=== PATIENT | female | born 1985 | race African-American/Black ===

== ENCOUNTER 2017-07-22 12:30 | Emergency (ER) | payer MEDICAID ==
[~2017-07-22] VITALS: Ht 167.6 cm; Wt 68.3 kg
[2017-07-22] MEDS ORDERED: IPRATROPIUM BROMIDE (0.02%) 0.5MG/2.5ML NEB HHN STA (12:44)
[2017-07-22] MEDS ORDERED: PREDNISONE 20MG TABLET PO STA (12:44)
[2017-07-22] MEDS ORDERED: ALBUTEROL (0.083%) 2.5MG/3ML NEB HHN STA (12:44)
[2017-07-22] MEDS ORDERED: CLONIDINE 0.1MG TABLET PO ONE (13:45)
[2017-07-22 14:33] LABS: HEMATOCRIT. 43.2 % (36.0-48.0); HEMOGLOBIN. 14.4 g/dL (12.0-16.0); MEAN CORPUSCULAR HEMOGLOBIN 29.8 pg (28.0-32.0); MEAN CORPUSCULAR VOLUME 89.6 fL (81.0-99.0); MEAN PLATELET VOLUME 7.3 fl (7.4-10.4); PLATELET 323 x1000/uL (130-400); RED BLOOD CELL COUNT 4.82 mill/uL (4.2-5.4); RED CELL DISTRIBUTION WIDTH 14.1 % (11.6-14.6)
[2017-07-22 14:40] LABS: CHLORIDE 107 mEq/L (98-107)
[2017-07-22 15:12] LABS: PLATELET ESTIMATE NORMAL
[2017-07-22] MEDS ORDERED: ALBUTEROL (0.083%) 2.5MG/3ML NEB HHN ONE (15:45)
[2017-07-22 16:26] VITALS: BP 154/90
== END 2017-07-22 18:00 | disposition home or self-care (01) ==
LOC: ER 12:30
DX: J45.901 Unspecified asthma with (acute) exacerbation (principal); I16.0 Hypertensive urgency; I10 Essential (primary) hypertension
CPT/HCPCS: 36415; 71045; 80053; 81025; 84484; 85025; 93005; 94640; 99285; J7512; J7611

== ENCOUNTER 2018-04-30 01:52 | Inpatient (IN) | payer BC, MEDICAID ==
[2018-04-30] VITALS (9 sets, daily range): BP systolic 146–172; BP diastolic 90–111
[~2018-04-30] VITALS: Ht 165.1 cm; Wt 69.9 kg
[2018-04-30] MEDS ORDERED: ALBUTEROL (0.083%) 2.5MG/3ML NEB HHN STA (03:54)
[2018-04-30] MEDS ORDERED: METHYLPREDNISOLONE SOD SUCC 125 MG/2 ML VIAL IV STA (03:54)
[2018-04-30] MEDS ORDERED: IPRATROPIUM BROMIDE (0.02%) 0.5MG/2.5ML NEB HHN STA (03:54)
[2018-04-30] MEDS ORDERED: MAGNESIUM 2 G PREMIX 50 ML IV STA (03:54)
[2018-04-30] MEDS ORDERED: KETOROLAC 30MG/ML VIAL IV ONE (04:15)
[2018-04-30] MEDS ORDERED: IPRATROPIUM/ALBUTEROL 0.5-3(2.5)MG/3ML NEB ONE (04:15)
[2018-04-30] MEDS ORDERED: ALBUTEROL (0.5%) 2.5MG/0.5ML NEB HHN ONE (04:16)
[2018-04-30 04:20] LABS: CHLORIDE 109 mEq/L (98-107)
[2018-04-30 04:25] LABS: HEMATOCRIT 42.3 % (36.0-48.0); HEMOGLOBIN 14.1 g/dL (12.0-16.0); MEAN CORPUSCULAR HEMOGLOBIN 31.6 pg (28.0-32.0); MEAN CORPUSCULAR VOLUME 94.6 fL (81.0-99.0); PLATELET 358 x1000/uL (130-400); RED BLOOD CELL COUNT 4.47 mill/uL (4.2-5.4); RED CELL DISTRIBUTION WIDTH 13.8 % (11.6-14.6)
[2018-04-30] MEDS: IPRATROPIUM/ALBUTEROL 0.5-3(2.5)MG/3ML NEB HHN SCH ×4 (10:51→19:59)
[2018-04-30] MEDS ORDERED: IRBE300T18 PO (11:58)
[2018-04-30] MEDS ORDERED: ALBUTEROL (11:58)
[2018-04-30] MEDS ORDERED: MONT10TA24 PO (11:58)
[2018-04-30] MEDS ORDERED: NIFE60TA64 PO (11:58)
[2018-04-30] MEDS ORDERED: ONDANSETRON 4MG ODT PO PRN (14:00)
[2018-04-30] MEDS ORDERED: DOCUSATE SODIUM 100MG CAPSULE PO PRN (14:00)
[2018-04-30] MEDS ORDERED: DIPHENHYDRAMINE 50MG/ML VIAL IV PRN (14:00)
[2018-04-30] MEDS ORDERED: MAGNESIUM HYDROXIDE 400MG/5ML 30ML UDC PO PRN (14:00)
[2018-04-30 14:23] LABS: BG BASE EXCESS -0.8 mmol/L (-2.0-2.0); BG CARBOXYHEMOGLOBIN 0.5 % (0.5-1.5); BG DEOXYHEMOGLOBIN 5.8 % (0.0-5.0); BG HCO3 ACT 23.5 mmol/L (22.0-26.0); BG METHEMOGLOBIN 0.1 % (0.0-1.5); BG OXYGEN SATURATION 94.2 % (92.0-98.5); BG OXYHEMOGLOBIN 93.6 % (94.0-97.0); BG PH 7.409 (7.350-7.450); BG PO2 69.4 mmHg (75.0-100.0); BG SAMPLE SITE RIGHT RADIAL; BG TOTAL HEMOGLOBIN 14.2 g/dL (12.0-18.0); BG VENT MODE ROOM AIR
[2018-04-30] MEDS: LORATADINE 10MG TABLET PO SCH (14:37)
[2018-04-30] MEDS: METHYLPREDNISOLONE SOD SUCC 40 MG/ML VIAL IV SCH ×2 (14:37→20:53)
[2018-04-30] MEDS: FAMOTIDINE 20MG/2ML VIAL IV SCH ×2 (14:37→20:48)
[2018-04-30] MEDS: ENOXAPARIN 40MG/0.4ML SYR SUBCUT SCH (14:38)
[2018-04-30] MEDS: HYDROCODONE/ACETAMINOPHEN 5/325MG TABLET PO PRN (14:46)
[2018-04-30] MEDS: LEVOFLOXACIN 500MG PREMIX 100 ML IV SCH (15:36)
[2018-04-30 16:58] LABS: CLARITY URINE CLEAR (CLEAR); COLOR URINE YELLOW (YELLOW); KETONES URINE NEGATIVE (NEGATIVE); LEUKOCYTE ESTERASE URINE NEGATIVE (NEGATIVE); NITRITE URINE NEGATIVE (NEGATIVE); OCCULT BLOOD URINE NEGATIVE (NEGATIVE); PROTEIN URINE NEGATIVE (NEGATIVE); SPECIFIC GRAVITY URINE 1.004 (1.005-1.030); UROBILINOGEN URINE 0.2 E.U./dL (0.2-1.0)
[2018-04-30 17:12] LABS: *COCAINE SCREEN URINE NEGATIVE (NEGATIVE); METHADONE URINE SCREEN NEGATIVE (NEGATIVE); OPIATES URINE SCREEN NEGATIVE (NEGATIVE)
[2018-04-30] MEDS: HYDRALAZINE 20MG/ML VIAL IV PRN (17:13)
[2018-04-30 17:14] LABS: *AMPHETAMINES SCREEN URINE NEGATIVE (NEGATIVE); *BARBITURATES SCREEN URINE NEGATIVE (NEGATIVE); *BENZODIAZEPINES SCREEN URINE NEGATIVE (NEGATIVE); CANNABINOID URINE SCREEN NEGATIVE (NEGATIVE); PHENCYCLIDINE URINE SCREEN NEGATIVE (NEGATIVE)
[2018-04-30] MEDS: MONTELUKAST SODIUM 10MG TABLET PO SCH (20:48)
[2018-04-30 21:14] LABS: HEMATOCRIT 42.7 % (36.0-48.0); MEAN CORPUSCULAR HEMOGLOBIN 31.5 pg (28.0-32.0); MEAN CORPUSCULAR VOLUME 96.4 fL (81.0-99.0); PLATELET 352 x1000/uL (130-400); RED BLOOD CELL COUNT 4.43 mill/uL (4.2-5.4)
[2018-04-30 21:22] LABS: CHLORIDE 108 mEq/L (98-107)
[2018-04-30 21:23] LABS: D-DIMER 0.69 mg/L FEU (<0.50); PROTHROMBIN TIME 10.5 sec (9.1-11.1)
[2018-04-30 21:31] LABS: LDL CHOLESTEROL 71 mg/dL (5-100)
[2018-04-30 21:32] LABS: HDL CHOLESTEROL 54 mg/dL (40-59)
[2018-04-30 21:33] LABS: T4 FREE 1.03 ng/dL (0.76-1.46)
[2018-04-30] MEDS: LOSARTAN POTASSIUM 100 MG TABLET PO SCH (21:48)
[2018-04-30] MEDS: NIFEDIPINE XL 60MG TAB PO SCH (21:48)
[2018-05-01] VITALS (12 sets, daily range): BP systolic 131–170; BP diastolic 69–115
[2018-05-01] MEDS: IPRATROPIUM/ALBUTEROL 0.5-3(2.5)MG/3ML NEB HHN SCH ×5 (00:16→20:46)
[2018-05-01] MEDS: HYDRALAZINE 20MG/ML VIAL IV PRN (02:12)
[2018-05-01] MEDS: METHYLPREDNISOLONE SOD SUCC 40 MG/ML VIAL IV SCH ×2 (05:20→14:05)
[2018-05-01 08:39] LABS: HEMATOCRIT 43.4 % (36.0-48.0); HEMOGLOBIN 14.2 g/dL (12.0-16.0); MEAN CORPUSCULAR HEMOGLOBIN 31.2 pg (28.0-32.0); MEAN CORPUSCULAR VOLUME 95.5 fL (81.0-99.0); PLATELET 393 x1000/uL (130-400); RED BLOOD CELL COUNT 4.54 mill/uL (4.2-5.4); RED CELL DISTRIBUTION WIDTH 13.8 % (11.6-14.6)
[2018-05-01] MEDS: NIFEDIPINE XL 60MG TAB PO SCH (08:40)
[2018-05-01] MEDS: LORATADINE 10MG TABLET PO SCH (08:40)
[2018-05-01] MEDS: LOSARTAN POTASSIUM 100 MG TABLET PO SCH (08:40)
[2018-05-01] MEDS: FAMOTIDINE 20MG/2ML VIAL IV SCH ×2 (08:40→22:31)
[2018-05-01] MEDS: HYDROCODONE/ACETAMINOPHEN 5/325MG TABLET PO PRN ×2 (08:41→15:07)
[2018-05-01] MEDS: ENOXAPARIN 40MG/0.4ML SYR SUBCUT SCH (14:11)
[2018-05-01 14:28] LABS: UCG SCREEN NEGATIVE
[2018-05-01] MEDS: LEVOFLOXACIN 500MG PREMIX 100 ML IV SCH (15:08)
[2018-05-01] MEDS: MONTELUKAST SODIUM 10MG TABLET PO SCH (22:30)
[2018-05-01] MEDS: GUAIFENESIN 600MG ER TABLET PO SCH (22:30)
[2018-05-02] VITALS (15 sets, daily range): BP systolic 132–165; BP diastolic 75–121
[2018-05-02] MEDS: IPRATROPIUM/ALBUTEROL 0.5-3(2.5)MG/3ML NEB HHN SCH ×6 (00:21→20:38)
[2018-05-02] MEDS: METHYLPREDNISOLONE SOD SUCC 40 MG/ML VIAL IV SCH ×2 (02:36→18:30)
[2018-05-02 06:46] LABS: HEMATOCRIT 42.3 % (36.0-48.0); HEMOGLOBIN 13.6 g/dL (12.0-16.0); MEAN CORPUSCULAR HEMOGLOBIN 30.7 pg (28.0-32.0); MEAN CORPUSCULAR VOLUME 95.5 fL (81.0-99.0); PLATELET 376 x1000/uL (130-400); RED BLOOD CELL COUNT 4.43 mill/uL (4.2-5.4); RED CELL DISTRIBUTION WIDTH 14.2 % (11.6-14.6)
[2018-05-02 07:20] LABS: CHLORIDE 106 mEq/L (98-107)
[2018-05-02] MEDS: LOSARTAN POTASSIUM 100 MG TABLET PO SCH (09:32)
[2018-05-02] MEDS: FAMOTIDINE 20MG/2ML VIAL IV SCH (09:32)
[2018-05-02] MEDS: LORATADINE 10MG TABLET PO SCH (09:32)
[2018-05-02] MEDS: NIFEDIPINE XL 60MG TAB PO SCH (09:33)
[2018-05-02] MEDS: GUAIFENESIN 600MG ER TABLET PO SCH (09:33)
[2018-05-02] MEDS: ENOXAPARIN 40MG/0.4ML SYR SUBCUT SCH (14:15)
[2018-05-02] MEDS: LEVOFLOXACIN 500MG PREMIX 100 ML IV SCH (14:16)
[2018-05-02] MEDS: HYDROCODONE/ACETAMINOPHEN 5/325MG TABLET PO PRN (15:26)
[2018-05-02] MEDS: HYDRALAZINE 20MG/ML VIAL IV PRN (19:06)
== END 2018-05-02 21:40 | disposition home or self-care (01) | DRG 291 ==
LOC: ER 01:52 → 5EST 04:58 → EDBEDREQ 05:00 → EDBEDREQTM 05:00 → ENRESERV 08:07
PROVIDERS: ADMIT Internal Medicine; ATTEND Internal Medicine
DX: I11.0 Hypertensive heart disease with heart failure (principal); J18.9 Pneumonia, unspecified organism; J45.901 Unspecified asthma with (acute) exacerbation; I50.33 Acute on chronic diastolic (congestive) heart failure; J06.9 Acute upper respiratory infection, unspecified; E86.0 Dehydration; R79.1 Abnormal coagulation profile
CPT/HCPCS: 36415; 36600; 71045; 78582; 80048; 80061; 80305; 81025; 82375; 82805; 83036; 84145; 84439; 84443; 85027; 85379; 93005; 93306; 93970; 94640; 94644; 96374; 99291; A9558; J0360; J1650; J1885; J1956; J2920; J2930; J3475; J3490; J7050; J7611; J7620

== ENCOUNTER 2019-01-22 11:06 | Emergency (ER) | payer BC, MEDICAID ==
[~2019-01-22] VITALS: Ht 162.6 cm; Wt 65.0 kg
[~2019-01-22 11:06] MED LIST: ALBUTEROL; MONT10TA24 PO; NIFE60TA64 PO
[2019-01-22 11:11] VITALS: BP 116/88
== END 2019-01-22 13:46 | disposition left against medical advice (07) ==
LOC: ER 11:06
DX: R10.9 Unspecified abdominal pain (principal); Z53.21 Procedure and treatment not carried out due to patient leaving prior to being seen by health care provider